=== PATIENT | male | born 1940 | race Caucasian/White ===

== ENCOUNTER 2021-11-16 16:59 | Emergency (ER) | payer MEDICARE, SELFPAY ==
[2021-11-16] VITALS (21 sets, daily range): BP systolic 139–189; BP diastolic 68–119; PULSE 88–137; RESP 19–35; TEMP 36.2; O2SAT 94–99
--- NOTE | 2021-11-16 16:59 | DI.CT.S_ITS ---
PROCEDURE: CT HEAD/BRAIN WO CON INDICATIONS: fall on thinners TECHNIQUE: Noncontrast 4.5 mm thick angled axial sections acquired from the foramen magnum to the vertex, with coronal and sagittal reformats. For radiation dose reduction, the following was used: automated exposure control, adjustment of mA and/or kV according to patient size. COMPARISON: None. FINDINGS: Image quality: Excellent. CSF spaces: Basal cisterns are patent. No extra-axial fluid collections. The ventricles are symmetric in size and shape. Brain: No intracranial bleeds or masses. There is cerebral volume loss for age, with resultant ventricular and sulcal prominence. There are periventricular and deep white matter chronic small vessel ischemic changes. There is intracranial internal carotid artery atherosclerosis. Skull and face: Calvarium and visualized facial bones appear intact, without suspicious lesions. Sinuses: Visualized sinuses and mastoids are clear. IMPRESSION: No acute intracranial abnormality demonstrated. Dictated by: Evin Varela M.D. on 11/16/2021 at 17:18 Approved by: Evin Varela M.D. on 11/16/2021 at 17:19
--- NOTE | 2021-11-16 16:59 | DI.CT.S_ITS ---
PROCEDURE: CT CERVICAL SPINE WO CON INDICATIONS: fall on thinners TECHNIQUE: Noncontrast 3 mm thick sections acquired from the skull base to the T4 level. Sagittal and coronal reformats were then constructed. For radiation dose reduction, the following was used: automated exposure control, adjustment of mA and/or kV according to patient size. COMPARISON: None. FINDINGS: Image quality: Excellent. Bones: No fractures or dislocations. Visualized superior ribs are intact. Soft tissues: Prevertebral soft tissues are normal in thickness. No paravertebral hematomas. No apical pneumothoraces. IMPRESSION: No CT evidence of acute traumatic cervical spine injury. Dictated by: Evin Varela M.D. on 11/16/2021 at 17:19 Approved by: Evin Varela M.D. on 11/16/2021 at 17:20
--- NOTE | 2021-11-16 17:16 | DI.RAD.S_ITS ---
PROCEDURE: XR CHEST 1V INDICATIONS: Chest pain TECHNIQUE: One view of the chest was acquired. COMPARISON: None. FINDINGS: Surgical changes and devices: None. Lungs and pleura: Lungs are clear. No pleural effusions or pneumothorax. Mediastinum: Mediastinal contours appear normal. Heart size is normal. Bones and chest wall: No suspicious bony lesions. Overlying soft tissues appear unremarkable. IMPRESSION: No acute cardiopulmonary process demonstrated radiographically. Dictated by: Evin Varela M.D. on 11/16/2021 at 17:46 Approved by: Evin Varela M.D. on 11/16/2021 at 17:46
[2021-11-16] MEDS: dilTIAZem 5 MG/ML SDV 10 MG IV (17:25)
[2021-11-16 17:30] LABS: Add Manual Diff / Slide Review NO; Basophils Absolute Auto 100 /uL (0-100); Basophils Percent Auto 0.9 % (0-2); Eosinophils Absolute Auto 200 /uL (0-450); Eosinophils Percent Auto 2.5 % (2-4); Hematocrit 35.5 % (41-53); Hemoglobin 11.8 g/dL (13.5-17.5); INR 1.2 (0.9-1.3); Lymphocytes Absolute Auto 1900 /uL (1100-4500); Lymphocytes Percent Auto 24.4 % (25-40); Mean Corpuscular HGB Conc 33.1 % (30-36); Mean Corpuscular Hemoglobin 28.3 PG (26-34); Mean Corpuscular Volume 85.4 fL (80-100); Monocytes Absolute Auto 600 /uL (0-900); Neutrophils Absolute Auto 5000 /uL (1500-7000); Neutrophils Percent Auto 64.2 % (50-75); Platelet Count 286 X10^3/uL (150-400); Red Blood Cell Count 4.16 X10^6/uL (4.5-5.9); Red Cell Distribution Width 14.6 % (11.6-14.8); White Blood Cell Count 7.7 X10^3/uL (4.5-11.0)
[2021-11-16 17:32] LABS: PTT Partial Thromboplastin Tim 32 SECONDS (26.4-36.2)
[2021-11-16 17:37] LABS: Alanine Aminotransferase 15 IU/L (<50); Albumin 4.6 g/dL (3.5-5.0); Albumin Globulin Ratio 1.1 (1.0-2.8); Alkaline Phosphatase 114 U/L (38-126); Aspartate Aminotransferase 24 IU/L (17-59); BUN Creatinine Ratio 12.6 (6-22); Bilirubin Total 0.6 mg/dL (0.2-1.3); Blood Urea Nitrogen 18 mg/dL (9-20); Calcium 9.8 mg/dL (8.4-10.2); Carbon Dioxide 28 mmol/L (22-32); Chloride 102 mmol/L (98-107); Creatine Kinase 57 U/L (55-170); Estimated Glomerular Filt Rate 47.2 mL/min (>60); Globulin 4.1 g/dL (1.7-4.1); Glucose 151 mg/dL (80-110); HEMOLYSIS 32 (0-50); Lipase 269 U/L (23-300); Magnesium 1.3 mg/dL (1.6-2.3); Potassium 4.5 mmol/L (3.4-5.1); Sodium 142 mmol/L (137-145); Total Protein 8.7 g/dL (6.3-8.2)
[2021-11-16 17:46] LABS: Troponin I < 0.012 ng/mL (0.01-0.034)
[2021-11-16 18:20] LABS: COVID19 -Nasal RAPID Negative (Negative)
[2021-11-16] MEDS: dilTIAZem CD 240 MG CAP PO (20:11)
--- NOTE | 2021-11-16 20:38 | ED.TRAUMA ---
HPI - Trauma General Chief Complaint: Trauma Stated Complaint: glf Time Seen by Provider: 11/16/21 18:10 Source: patient and EMS Mode of arrival: EMS Limitations: no limitations History of Present Illness HPI narrative: This is an 81-year-old male had a ground level trip and fall. Patient states he lost his balance he states this happens intermittently. He denies headache, he does have a laceration on his right scalp, no neck or back pain, no vision changes, no numbness, tingling or weakness, no chest pain or shortness of breath. Patient is on Xarelto for atrial fibrillation. 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 Related Data Home Medications Medication Instructions Recorded Confirmed diltiazem HCl 120 mg tablet 240 mg PO DAILY 11/16/21 11/16/21 insulin glargine 100 unit/mL 40 unit SUBCUT DAILY 11/16/21 11/16/21 subcutaneous solution (Lantus U-100 Insulin) latanoprost 0.005 % eye drops 1 drp EYE-BOTH DAILY 11/16/21 11/16/21 metformin 1,000 mg tablet 1,000 mg PO BID 11/16/21 11/16/21 rivaroxaban 20 mg tablet (Xarelto) 20 mg PO DAILY 11/16/21 11/16/21 vitamin B complex (B 1 tab PO DAILY 11/16/21 11/16/21 Complex-Vitamin B12) Allergies Allergy/AdvReac Type Severity Reaction Status Date / Time No Known Drug Allergies Allergy Verified 11/16/21 17:04 Review of Systems Review of Systems ROS Unobtainable: All systems reviewed & are unremarkable except as noted in HPI and below Patient History Medical History Afib Social History Smoking Status: Former smoker Smoking Status: Former smoker alcohol intake frequency: 0-2 drinks per day Substance Use Type: does not use Exam Narrative Exam Narrative: GEN: Patient appears in male distress. HEAD: Patient has 1.5 cm laceration of the right parietal scalp, no raccoon/Farris sign. NECK: Nontender, painless range of motion, trachea midline Positive for Nexus criteria, there is no midline line tenderness, distracting injury, altered mental status, neuro deficit, recent EtOH. EYES: PERRLA, EOMI ENT: External inspection normal, trachea is midline, Nares are clear, no septal hematoma, no dental or oral injury, airway is normal and with normal occlusion, No bony tenderness RESP: Chest is nontender and has symmetric movement, no ecchymosis, breath sounds are normal no crackles, wheezes or rales CVS: Heart sounds are normal, no murmur noted, No JVD. ABG/GI: Nontender, soft, normal bowel sounds, no distention, no organomegaly, pelvic rock is negative NEURO: Oriented AOx3, neuro is grossly intact, sensation and motor is normal all 4 extremities moving, cranial nerves II through XII are intact, GCS is 15 PSYCH: Normal mood and affect SKIN: Intact, warm and dry, no crepitus and without decubitus BACK: No CVA tenderness, no vertebral tenderness, no step-off's, no crepitus EXT: Atraumatic, hips are nontender, no pedal edema, normal color and temperature, normal range of motion of extremities with normal tendon exam, 2+ pulses in all four extremities Initial Vital Signs Initial Vital Signs: Vital Signs Blood Pressure 177/91 H 11/16/21 17:00 Procedures Laceration Repair Laceration 1: Time of procedure: 21:08 Site: scalp Side (If applicable): right Size (cm): 1.2 Description: linear Depth: simple, single layer Local Anesthetic: lidocaine 1% Amount of anesthesia used (mL): 2.5 Pre-repair: wound explored, irrigated extensively and deep structures intact Skin layer closed with: alban Number of sutures: 3 Scores GCS Cynthia coma scale eye opening: Spontaneous Cynthia coma scale verbal response: Orientated Cynthia coma scale motor response: Obey commands Encampment coma scale total score: 15 Course Orders Ordered: Discontinued Medications Diltiazem HCl (Diltiazem 5 Mg/Ml Sdv) 10 mg IV NOW ONE Stop: 11/16/21 17:17 Last Admin: 11/16/21 17:25 Dose: 10 mg Documented by: JB Diltiazem HCl (Diltiazem Cd 240 Mg Cap) 240 mg PO NOW ONE Stop: 11/16/21 20:06 Last Admin: 11/16/21 20:11 Dose: 240 mg Documented by: JB Lidocaine/Sodium Bicarbonate (Lido 1%/Sod Bicarb 8.4% (10ml) 10 Ml Syringe) 10 ml INJ NOW ONE Stop: 11/16/21 20:51 Last Admin: 11/16/21 21:13 Dose: 10 ml Documented by: JB Vital Signs Vital signs: Vital Signs - 8 hr 11/16/21 17:00 11/16/21 17:01 11/16/21 17:10 Temperature 97.1 F L Pulse Rate 124 H 137 H Respiratory Rate 20 35 H Blood Pressure 177/91 H 140/79 167/79 H Pulse Oximetry 99 98 11/16/21 17:15 11/16/21 17:25 11/16/21 17:30 Temperature Pulse Rate 133 H 133 H 113 H Respiratory Rate 27 H 26 H Blood Pressure 158/89 H 146/80 H Pulse Oximetry 98 97 11/16/21 17:45 11/16/21 17:46 11/16/21 18:00 Temperature Pulse Rate 90 90 89 Respiratory Rate 21 25 H 22 Blood Pressure 173/76 H 147/81 H Pulse Oximetry 98 98 96 11/16/21 18:15 11/16/21 18:30 11/16/21 18:45 Temperature Pulse Rate 88 89 90 Respiratory Rate 22 19 23 Blood Pressure 148/75 H 161/90 H 180/86 H Pulse Oximetry 95 96 96 MDM - Trauma Lab Data Result diagrams: 11/16/21 17:05 11/16/21 17:05 Labs: Lab Results 11/16/21 11/16/21 11/16/21 Range/Units 17:05 17:05 17:05 WBC 7.7 (4.5-11.0) X10^3/uL RBC 4.16 L (4.5-5.9) X10^6/uL Hgb 11.8 L (13.5-17.5) g/dL Hct 35.5 L (41-53) % MCV 85.4 (80-100) fL MCH 28.3 (26-34) PG MCHC 33.1 (30-36) % RDW 14.6 (11.6-14.8) % Plt Count 286 (150-400) X10^3/uL Neut % (Auto) 64.2 (50-75) % Lymph % (Auto) 24.4 L (25-40) % Ward % (Auto) 8.0 (3-14) % Eos % (Auto) 2.5 (2-4) % Baso % (Auto) 0.9 (0-2) % Neut # (Auto) 5000 (2526-0188) /uL Lymph # (Auto) 1900 (8479-0046) /uL Ward # (Auto) 600 (0-900) /uL Eos # (Auto) 200 (0-450) /uL Baso # (Auto) 100 (0-100) /uL PT 14.0 H (10.1-12.7) SECONDS INR 1.2 (0.9-1.3) APTT 32 (26.4-36.2) SECONDS Sodium 142 (137-145) mmol/L Potassium 4.5 (3.4-5.1) mmol/L Chloride 102 (98-107) mmol/L Carbon Dioxide 28 (22-32) mmol/L BUN 18 (9-20) mg/dL Creatinine 1.43 H (0.66-1.25) mg/dL Estimated GFR 47.2 L (>60) mL/min BUN/Creatinine Ratio 12.6 (6-22) Glucose 151 H (80-110) mg/dL Calcium 9.8 (8.4-10.2) mg/dL Magnesium 1.3 L (1.6-2.3) mg/dL Total Bilirubin 0.6 (0.2-1.3) mg/dL AST 24 (17-59) IU/L ALT 15 (<50) IU/L Alkaline Phosphatase 114 (38-126) U/L Total Creatine Kinase 57 (55-170) U/L CK-MB (CK-2) TNP CK-MB (CK-2) Rel Index TNP Troponin I < 0.012 (0.01-0.034) ng/mL Total Protein 8.7 H (6.3-8.2) g/dL Albumin 4.6 (3.5-5.0) g/dL Globulin 4.1 (1.7-4.1) g/dL Albumin/Globulin Ratio 1.1 (1.0-2.8) Lipase 269 (23-300) U/L SARS-CoV-2 (PCR) (Negative) 11/16/21 Range/Units 17:32 WBC (4.5-11.0) X10^3/uL RBC (4.5-5.9) X10^6/uL Hgb (13.5-17.5) g/dL Hct (41-53) % MCV (80-100) fL MCH (26-34) PG MCHC (30-36) % RDW (11.6-14.8) % Plt Count (150-400) X10^3/uL Neut % (Auto) (50-75) % Lymph % (Auto) (25-40) % Ward % (Auto) (3-14) % Eos % (Auto) (2-4) % Baso % (Auto) (0-2) % Neut # (Auto) (6289-2676) /uL Lymph # (Auto) (9840-6227) /uL Ward # (Auto) (0-900) /uL Eos # (Auto) (0-450) /uL Baso # (Auto) (0-100) /uL PT (10.1-12.7) SECONDS INR (0.9-1.3) APTT (26.4-36.2) SECONDS Sodium (137-145) mmol/L Potassium (3.4-5.1) mmol/L Chloride (98-107) mmol/L Carbon Dioxide (22-32) mmol/L BUN (9-20) mg/dL Creatinine (0.66-1.25) mg/dL Estimated GFR (>60) mL/min BUN/Creatinine Ratio (6-22) Glucose (80-110) mg/dL Calcium (8.4-10.2) mg/dL Magnesium (1.6-2.3) mg/dL Total Bilirubin (0.2-1.3) mg/dL AST (17-59) IU/L ALT (<50) IU/L Alkaline Phosphatase (38-126) U/L Total Creatine Kinase (55-170) U/L CK-MB (CK-2) CK-MB (CK-2) Rel Index Troponin I (0.01-0.034) ng/mL Total Protein (6.3-8.2) g/dL Albumin (3.5-5.0) g/dL Globulin (1.7-4.1) g/dL Albumin/Globulin Ratio (1.0-2.8) Lipase (23-300) U/L SARS-CoV-2 (PCR) Negative (Negative) Imaging Data CT scan - head: Radiologist's Impression: [address] [address] [address] Scan Report Signed Patient: Ty Mahan MR#: [id number] : 1940 Acct:[id number] Age/Sex: 81 / M Date of Service: 11/16/21 Loc: ED Accession Number: [id number] ?? Procedure: CT head/brain wo con Ordering Provider: Keira Vargas D.O. PROCEDURE:? CT HEAD/BRAIN WO CON ? INDICATIONS:? fall on thinners ? TECHNIQUE:? Noncontrast 4.5 mm thick angled axial sections acquired from the foramen magnum to the vertex, with coronal and sagittal reformats.? For radiation dose reduction, the following was used:? automated exposure control, adjustment of mA and/or kV according to patient size.? ? COMPARISON:? None. ? FINDINGS:? Image quality:? Excellent.? ? CSF spaces:? Basal cisterns are patent.? No extra-axial fluid collections.? The ventricles are symmetric in size and shape.? ? Brain:? No intracranial bleeds or masses.? There is cerebral volume loss for age, with resultant ventricular and sulcal prominence.? There are periventricular and deep white matter chronic small vessel ischemic changes.? There is intracranial internal carotid artery atherosclerosis.? ? Skull and face:? Calvarium and visualized facial bones appear intact, without suspicious lesions.? ? Sinuses:? Visualized sinuses and mastoids are clear.? ? IMPRESSION:? No acute intracranial abnormality demonstrated. ? ? Dictated by: Evin Varela M.D. on 11/16/2021 at 17:18 ? ? Approved by: Evin Varela M.D. on 11/16/2021 at 17:19?? CT - cervical spine: Radiologist's Impression: [address] [address] [address] Scan Report Signed Patient: Ty Mahan MR#: [id number] : 1940 Acct:[id number] Age/Sex: 81 / M Date of Service: 11/16/21 Loc: ED Accession Number: [id number] ?? Procedure: CT cervical spine wo con Ordering Provider: Keira Vargas D.O. PROCEDURE:? CT CERVICAL SPINE WO CON ? INDICATIONS:? fall on thinners ? TECHNIQUE:? Noncontrast 3 mm thick sections acquired from the skull base to the T4 level.? Sagittal and coronal reformats were then constructed.? For radiation dose reduction, the following was used:? automated exposure control, adjustment of mA and/or kV according to patient size.? ? COMPARISON:? None. ? FINDINGS:? Image quality:? Excellent.? ? Bones:? No fractures or dislocations.? Visualized superior ribs are intact.? ? Soft tissues:? Prevertebral soft tissues are normal in thickness.? No paravertebral hematomas.? No apical pneumothoraces.? ? ? IMPRESSION:? No CT evidence of acute traumatic cervical spine injury. ? Dictated by: Evin Varela M.D. on 11/16/2021 at 17:19 ? ? Approved by: Evin Varela M.D. on 11/16/2021 at 17:20?? Chest x-ray: Radiologist's Impression: Close Chest X-Ray (Signed) Evin Varela - 11/16/[address] (Signed) Evin Varela - 11/16/[address] (Signed) Evin Varela - 11/16/21 [place] [address] XRay Report Signed Patient: Ty Mahan MR#: [id number] : 1940 Acct:[id number] Age/Sex: 81 / M Date of Service: 11/16/21 Loc: ED Accession Number: [id number] ?? Procedure: XR chest 1V Ordering Provider: Keira Vargas D.O. PROCEDURE:? XR CHEST 1V ? INDICATIONS:? Chest pain ? TECHNIQUE:? One view of the chest was acquired.? ? COMPARISON:? None. ? FINDINGS:? ? Surgical changes and devices:? None.? ? Lungs and pleura:? Lungs are clear.? No pleural effusions or pneumothorax.? ? Mediastinum:? Mediastinal contours appear normal.? Heart size is normal.? ? Bones and chest wall:? No suspicious bony lesions.? Overlying soft tissues appear unremarkable.? ? IMPRESSION:? No acute cardiopulmonary process demonstrated radiographically. ? ? Dictated by: Evin Varela M.D. on 11/16/2021 at 17:46 ? ? Approved by: Evin Varela M.D. on 11/16/2021 at 17:46?? ECG Data Attestation: I personally reviewed and interpreted this ECG as follows: Prior ECG tracings: available for review Interpretation: AFib with RVR rate of 109 QRS of 66 QTC 368. No priors were available for comparison. MDM Narrative Medical decision making narrative: This is an 81-year-old male who had a ground level fall. Patient is on Xarelto head CT does not show any acute bleed he does have a small laceration which was repaired with alban on his parietal scalp. Patient was in AFib RVR which is why he is anticoagulated. He had a dose of IV diltiazem which improved his heart rate significantly. He had missed his evening medications and heart rate began to climb again and patient was given his oral home diltiazem. Patient's imaging, labs do not show acute abnormalities his states he has known chronic kidney disease and mild anemia. Heart rate has been somewhat elevated prior to discharge but and family defer definition all doses of diltiazem with plan to monitor at overnight she states he is in proximal atrial fibrillation and she is concerned additional dose might drop too low if he switches to a normal rhythm. I do feel this is appropriate. Patient is well compensated. All questions answered. Discharge Plan Departure Patient Disposition: Home Clinical Impression: Fall, Laceration of scalp, Atrial fibrillation with RVR Instructions: DI for Laceration Repair of the Scalp Activity Restrictions/Additional Instructions: Follow-up with your physician for recheck in 7-10 days for removal of your alban. Continue to monitor your heart rate at home if it stays persistently elevated or you have low blood pressures please return. You may resume your home medications as prescribed. Wound Care: Keep wound(s) clean and dry. Wash daily with soap and water only. Do not use over the counter products (alcohol or peroxide)on the wounds unless instructed by a physician. If wound condition worsens (increased/expanding redness, developing fluid blisters, or worsening pain), either contact your doctor for an urgent re-assessment , or return to the Emergency Department. Return to the Emergency Department for any new or worsening symptoms. Return to the ED, urgent care, or vist a primary care doctor for removal or suture or alban in 7-10 days. Return if fever greater than 100.4 Fahrenheit, increased swelling, increasing pain or worsening symptoms such as increased discharge or spreading redness. Confusion, severe headaches, new numbness, tingling or weakness, vision changes, vomiting, chest pain or shortness of breath or other new or concerning changes. Prescriptions: No Action latanoprost 0.005 % Drops 1 drp EYE-BOTH DAILY 0RF Lantus U-100 Insulin 100 unit/mL solution 40 unit SUBCUT DAILY 0RF diltiazem HCl 120 mg tablet 240 mg PO DAILY 0RF metformin 1,000 mg tablet 1,000 mg PO BID 0RF vitamin B complex [B Complex-Vitamin B12] Tablet 1 tab PO DAILY 0RF Xarelto 20 mg tablet 20 mg PO DAILY 0RF
[2021-11-16] MEDS: LIDO 1%/SOD BICARB 8.4% (10ML) 10 ML SYRINGE INJ (21:13)
== END 2021-11-16 21:22 | disposition home or self-care (01) ==
PROVIDERS: Emergency Medicine; Emergency Provider Emergency Medicine
DX: S01.01XA Laceration without foreign body of scalp, initial encounter (principal); I48.20 Chronic atrial fibrillation, unspecified; W18.30XA Fall on same level, unspecified, initial encounter; Z79.01 Long term (current) use of anticoagulants; Z20.822 Contact with and (suspected) exposure to COVID-19
CPT/HCPCS: 12001; 36415; 70450; 71045; 72125; 80053; 82550; 83690; 83735; 84484; 85025; 85610; 85730; 87635; 93005; 93010; 96374; 99285; C9803